=== PATIENT | female | born 1950 | race Caucasian/White ===

== ENCOUNTER 2020-10-09 13:29 | Inpatient (IN) | payer MEDICARE ==
[~2020-10-09] VITALS: Ht 160 cm; Wt 54.9 kg
[2020-10-09] MEDS ORDERED: FLUT1DIS IH (17:03)
[2020-10-09] MEDS ORDERED: THIA100T70 PO (17:03)
[2020-10-09] MEDS ORDERED: FOLI0.4T2 PO (17:03)
[2020-10-09] MEDS ORDERED: ALBU8.5H8 IH (17:03)
[2020-10-09] MEDS ORDERED: DIVA125C5 PO (17:03)
[2020-10-09] MEDS ORDERED: MULT-447 PO (17:03)
[2020-10-09] MEDS ORDERED: MAGN400T26 PO (17:03)
[2020-10-09] MEDS ORDERED: LEVO500T90 PO (17:03)
[2020-10-09] MEDS ORDERED: MONT10TA22 PO (17:03)
[2020-10-09] MEDS ORDERED: MAGNESIUM HYDROXIDE 30 ML UDC PO PRN (18:00)
[2020-10-09] MEDS ORDERED: ALBUTEROL FS 2.5 MG/3 ML VIAL.NEB INH PRN (18:30)
[2020-10-09 20:00] VITALS: BP 107/71
[2020-10-09] MEDS ORDERED: BLOOD SUGAR DIAGNOSTIC 1 EACH STRIP IN ONE (20:30)
[2020-10-09] MEDS: ACETAMINOPHEN 325 MG TABLET PO PRN (21:26)
[2020-10-09] MEDS: LORAZEPAM 0.5 MG TABLET PO PRN (21:26)
[2020-10-09] MEDS ORDERED: MONTELUKAST SODIUM (10MG) 10 MG TABLET PO SCH (22:00)
--- NOTE | 2020-10-09 22:09 | NUR ---
GPS RN NOTES: PATIENT REFUSED 2200 SINGULAR 10MG PO ORDERED. PER PATIENT SHE TAKES IT IN THE MORNINGS ONLY.
[2020-10-09 22:50] VITALS: BP 107/71
[2020-10-09] MEDS: TEMAZEPAM 7.5 MG CAPSULE PO PRN (22:56)
--- NOTE | 2020-10-10 01:04 | NUR ---
GPS RN NOTES: RECEIVED PATIENT A/O X2-3, PER REPORT, PATIENT PRESENTS TO [facility] AFTER SHE SAID SHE OVERDOSED ON 3 DIFFERENT PILLS BECAUSE HER ASKED FOR DIVORCE AND SHE IS OVERWHELMED. UPON FACE TO FACE EVALUATION, PATIENT PRESENTS A/O X2-3, FLAT AFFECT, DISHEVELED, NO S/S OF DISTRESS. NO COMPLAINS OF PAIN. RESPIRATION EVEN AND UNLABORED WITH EQUAL RISE AND FALL OF THE CHEST ON ROOM AIR. DENIES SUICIDAL IDEATIONS AT THIS TIME. PATIENT REFUSED TO SIGN ALL PAPER WORK, REFUSED MRSA, BS 95MG/DL. SKIN ASSESSMENT DONE AND PICTURES TAKEN AND PLACED IN PATIENT CHART. PATIENT RIGHTS BOOKLET GIVEN. PATIENT IS UNDER THE PSYCHIATRIC CARE OF [place] AND MEDICAL CARE OF [place]. PATIENT BELONGINGS WERE INVENTORIED AND CHECKED FOR CONTRABAND. CONTRABAND REMOVED AND STORED IN MANAGER GRANT'S SAFE. IMMUNIZATIONS QUESTIONER AND NECESSARY PAPER WORK COMPLETED. PATIENT ORIENTED TO ROOM, FLOOR AND STAFF WITH ALL QUESTIONS ANSWERED. PATIENT EDUCATED ON THE USE OF CALL CRUZ. PATIENT BED SIDE RAILS UP X2 FOR SAFETY. PATIENT BED IS LOCKED AND IN LOWEST POSITION. Q15 MINUTES ROUNDS INITIATED. PATIENT CURRENTLY SLEEPING. WILL CONTINUE TO MONITOR PATIENT FOR SAFETY, MOOD, AND BEHAVIOR.
[2020-10-10 07:20] LABS: ALBUMIN 2.9 g/dL (3.4-5.0); BILIRUBIN,TOTAL 0.4 mg/dL (0.2-1.0); CALCIUM, SERUM 8.9 mg/dL (8.5-10.1); CREATININE 0.6 mg/dL (0.6-1.3); POTASSIUM 3.4 mmol/L (3.5-5.1); TOTAL PROTEIN, SERUM 6.3 g/dL (6.4-8.2)
[2020-10-10 08:00] VITALS: BP 118/72
[2020-10-10] MEDS: LEVOFLOXACIN (500MG) 500 MG TABLET PO SCH (09:07)
[2020-10-10] MEDS: MAGNESIUM OXIDE 400 MG TABLET PO SCH (09:07)
[2020-10-10] MEDS: THIAMINE HCL 100 MG TABLET PO SCH (09:07)
[2020-10-10] MEDS: FOLIC ACID 1 MG TABLET PO SCH (09:07)
[2020-10-10] MEDS: MULTIVIT W/MINERALS 1 TAB TABLET PO SCH (09:07)
[2020-10-10] MEDS: FLUTICASONE/VILANTEROL 1 EACH BLST.W.DEV IH SCH (09:07)
[2020-10-10] MEDS ORDERED: POTASSIUM CHLORIDE 20 MEQ TAB.PRT.SR PO ONE (10:00)
[2020-10-10] MEDS: MONTELUKAST SODIUM (10MG) 10 MG TABLET PO SCH (13:50)
[2020-10-10] MEDS: OLANZAPINE 2.5 MG TABLET PO SCH ×2 (13:50→20:16)
[2020-10-10] MEDS: ACETAMINOPHEN 325 MG TABLET PO PRN ×2 (15:03→22:27)
--- NOTE | 2020-10-10 15:03 | NUR ---
GPS RN NOTES PATIENT COMPLAINING OF SHOULDER PAIN AND REQUESTING PRN MEDICATION. PRN TYLENOL ADMINISTERED.
[2020-10-10 16:00] VITALS: BP 97/79
--- NOTE | 2020-10-10 19:24 | NUR ---
RN NOTES, PATIENT IN HALLWAY WALKING, NO DISRUPTIVE BEHAVIOR NOTED, WILL CONT TO MONITOR.
[2020-10-10 20:00] VITALS: BP 105/59
[2020-10-10] MEDS: TEMAZEPAM 7.5 MG CAPSULE PO PRN (21:28)
--- NOTE | 2020-10-11 06:41 | NUR ---
RN NOTES, PT IN ROOM AT THIS TIME, NOTED WITH EPISODES OF CURSING AND YELLING STAFF, OTHERWISE NO SIGNIFICANT CHANGE IN CONDITION, WILL ENDORSE CONTINUITY OF CARE TO ONCOMING NURSE.
[2020-10-11 07:33] LABS: BASOPHILS % (AUTO) 0.8 % (0.0-2.0); EOSINOPHILS % (AUTO) 7.4 % (0.0-6.0); HEMATOCRIT 32 % (33-45); HEMOGLOBIN 11.1 g/dL (11.5-14.8); LYMPHOCYTES # (AUTO) 1.6 /CMM (0.8-4.8); LYMPHOCYTES % (AUTO) 35.9 % (20.0-44.0); MEAN CORPUSCULAR HGB CONC 34 g/dl (31.0-36.0); MEAN CORPUSCULAR VOLUME 92 fL (82-100); MONOCYTES # (AUTO) 0.6 /CMM (0.1-1.30); MONOCYTES % (AUTO) 13.2 % (2.0-12.0); NEUTROPHILS # (AUTO) 1.9 /CMM (1.8-8.9); NEUTROPHILS % (AUTO) 42.7 % (43.0-81.0); PLATELET COUNT (AUTO) 257 /CMM (150-450); RED BLOOD CELL COUNT(AUTO) 3.51 MIL/uL (4.0-5.2); WHITE BLOOD COUNT (AUTO) 4.4 K/uL (4.3-11.0)
[2020-10-11 07:56] LABS: BILIRUBIN,TOTAL 0.3 mg/dL (0.2-1.0); CALCIUM, SERUM 8.8 mg/dL (8.5-10.1); CREATININE 0.6 mg/dL (0.6-1.3); POTASSIUM 3.7 mmol/L (3.5-5.1); TOTAL PROTEIN, SERUM 6.3 g/dL (6.4-8.2)
[2020-10-11 08:00] VITALS: BP 107/68
[2020-10-11] MEDS: MONTELUKAST SODIUM (10MG) 10 MG TABLET PO SCH (08:55)
[2020-10-11] MEDS: LEVOFLOXACIN (500MG) 500 MG TABLET PO SCH (08:55)
[2020-10-11] MEDS: THIAMINE HCL 100 MG TABLET PO SCH (08:55)
[2020-10-11] MEDS: FOLIC ACID 1 MG TABLET PO SCH (08:55)
[2020-10-11] MEDS: OLANZAPINE 2.5 MG TABLET PO SCH ×2 (08:55→21:17)
[2020-10-11] MEDS: MULTIVIT W/MINERALS 1 TAB TABLET PO SCH (08:56)
[2020-10-11] MEDS: MAGNESIUM OXIDE 400 MG TABLET PO SCH (08:56)
[2020-10-11] MEDS: FLUTICASONE/VILANTEROL 1 EACH BLST.W.DEV IH SCH (09:00)
--- NOTE | 2020-10-11 10:04 | NUR ---
WOUND CARE CONSULT: PT PRESENTS WITH SKIN TEAR TO RT ARM NEAR ELBOW, PRESENT ON ADMISSION. PT STATES THAT SHE HAD A FALL PRIOR TO ADMISSION. RECOMMENDATIONS MADE FOR SKIN PROTECTION AND WOUND CARE. DISCUSSED WITH NURSING STAFF. IN AGREEMENT WITH PLAN OF CARE. Addendum: 10/11/20 at 1005 by ELIZABETH ROJAS WNDNU Amended: Links added.
--- NOTE | 2020-10-11 14:07 | NUR ---
Family Contact: SW called the pts daughter, Dianne ([phone]), and spoke to her at length about the pts prior history and the situation that caused her to be admitted to the psychiatric hospital. Per daughter she does not believe that the pt can return to the home at this time and SW expressed that the MD stated that SNF would be a reasonable discharge plan for the pt. ELIZABETH stated that she would send out referrals and keep her involved in the treatment.
[2020-10-11 16:00] VITALS: BP 147/74
[2020-10-11 20:27] VITALS: BP 119/73
[2020-10-11] MEDS: TEMAZEPAM 7.5 MG CAPSULE PO PRN (21:42)
[2020-10-11] MEDS: LORAZEPAM 0.5 MG TABLET PO PRN (23:11)
--- NOTE | 2020-10-11 23:17 | NUR ---
NURSES NOTES: PATIENT APPROACHED RESEARCH AND DEVELOPMENT DIRECTOR IN THE STATION, STILL AWAKE, COMPLAINING OF NOT BEING ABLE TO SLEEP. DR. CALHOUN MADE AWARE OF PATIENT'S REQUEST FOR SEROQUEL. EXPLAINED TO PATIENT THAT THIS MEDICATION IS NOT ORDERED FOR HER. OFFERED TO PATIENT HER ATIVAN MEDICATION THIS IS ONE OF HER PRN MEDS- THIS TIME AROUND PATIENT IS NOTED TO BE ANXIOUS AND WANTING TO SLEEP. ATIVAN 0.5 MG PO GIVEN. WILL MONITOR EFFICACY OF MEDICATION.
[2020-10-12 07:31] LABS: ALBUMIN 3.1 g/dL (3.4-5.0); BILIRUBIN,TOTAL 0.3 mg/dL (0.2-1.0); CALCIUM, SERUM 8.8 mg/dL (8.5-10.1); CREATININE 0.6 mg/dL (0.6-1.3); POTASSIUM 3.7 mmol/L (3.5-5.1); TOTAL PROTEIN, SERUM 6.5 g/dL (6.4-8.2)
[2020-10-12 08:00] VITALS: BP 98/59
[2020-10-12] MEDS: MONTELUKAST SODIUM (10MG) 10 MG TABLET PO SCH (08:19)
[2020-10-12] MEDS: FLUTICASONE/VILANTEROL 1 EACH BLST.W.DEV IH SCH (08:19)
[2020-10-12] MEDS: LEVOFLOXACIN (500MG) 500 MG TABLET PO SCH (08:19)
[2020-10-12] MEDS: MULTIVIT W/MINERALS 1 TAB TABLET PO SCH (08:19)
[2020-10-12] MEDS: FOLIC ACID 1 MG TABLET PO SCH (08:20)
[2020-10-12] MEDS: THIAMINE HCL 100 MG TABLET PO SCH (08:20)
[2020-10-12] MEDS: MAGNESIUM OXIDE 400 MG TABLET PO SCH (08:20)
[2020-10-12] MEDS: OLANZAPINE 2.5 MG TABLET PO SCH ×2 (08:20→12:29)
--- NOTE | 2020-10-12 13:20 | NUR ---
Family Contact: ELIZABETH called the pts daughter, Dianne ([phone]), to return her phone call. ELIZABETH stated that the MD will be calling her soon as she wants to discuss the pts history. ELIZABETH then went into explaining the recent medication adjustments that were made for the pt to assist with her condition as well as her difficulty sleeping. ELIZABETH informed the pts daughter that she would keep her updated.
[2020-10-12 16:00] VITALS: BP 133/63
[2020-10-12] MEDS: ACETAMINOPHEN 325 MG TABLET PO PRN (16:17)
[2020-10-12] MEDS ORDERED: OLANZAPINE 2.5 MG TABLET PO PRN (16:30)
--- NOTE | 2020-10-12 16:35 | NUR ---
Initial Discharge Plan: Pt currently resides at her home with her located at [address] [place] [address]; ([phone]). Per pt, she would like to return home. ELIZABETH spoke with pts daughter, Dianne ([phone]), who agreed that the pt will need a SNF. ELIZABETH will work with the pt, pts family, and pt MD regarding appropriate discharge planning. ELIZABETH will form a safe and proper discharge.
--- NOTE | 2020-10-12 17:06 | NUR ---
MD Contact: SW spoke with the pts outpatient physician, Dr. Reyes (office: [phone] and cell: [phone]), who stated that he wanted to know about the events leading to her hospitalization and wanted to understand the reasoning behind the decision to discharge pt to SNF. SW expressed that there are concerns around her stressor of her divorce and the suicidal statements that she has been making as well as endorsing a plan. Pts MD stated that he understands and states that he would be willing to be involved if needed.
--- NOTE | 2020-10-12 19:30 | NUR ---
GPS RN NOTE, RECEIVED PATIENT AWAKE AND IN BED, NO S/S OR COMPLAINTS OF PAIN AT THIS TIME. PATIENT IS DISPLAYING NO S/S OF APPARENT DISTRESS AT THIS TIME. PATIENT BREATHING IS UNLABORED WITH EQUAL RISE AND FALL OF THE CHEST. PATIENT IS ALERT AND ORIENTED X 2-3 ON ROOM AIR. PATIENT IS COMPLIANT WITH MEDICATIONS, ANXIOUS AT TIMES, TEARFUL, AND UNCOOPERATIVE. PATIENT DENIES SUICIDAL AND HOMICIDAL IDEATIONS AT THIS TIME. PATIENT ASSISTED WITH TURNING AND REPOSITIONING Q2HR AND PRN FOR COMFORT AND CIRCULATION. PATIENT HAS NO NEEDS AT THIS TIME. PATIENT EDUCATED ON THE USE OF THE CALL CRUZ. PATIENT BED SIDE RAILS UP X 2 FOR SAFETY. PATIENT BED IS LOCKED, LOW, WITH BED ALARM ON. WILL CONTINUE TO MONITOR THIS PATIENT Q15 MINUTES WITH THE HELP OF STAFF TO MAINTAIN SAFETY.
[2020-10-12] MEDS ORDERED: OLANZAPINE 5 MG TABLET PO SCH (21:00)
[2020-10-12] MEDS: TEMAZEPAM 7.5 MG CAPSULE PO PRN (21:17)
--- NOTE | 2020-10-12 21:17 | NUR ---
GPS RN NOTE, PATIENT HAS A COMPLAINT OF NOT BEING ABLE TO SLEEP AND IS REQUESTING RESTORIL AT THIS TIME. PATIENT VITAL SIGNS ARE STABLE. GAVE RESTORIL 7.5 MG PO HS PRN ORDERED. WILL REASSESS FOR INSOMNIA AND I WILL CONTINUE TO MONITOR THIS PATIENT.
[2020-10-13] MEDS: OLANZAPINE 2.5 MG TABLET PO SCH ×2 (07:59→13:07)
[2020-10-13 08:00] VITALS: BP 107/70
[2020-10-13] MEDS: FLUTICASONE/VILANTEROL 1 EACH BLST.W.DEV IH SCH (08:09)
[2020-10-13] MEDS: MONTELUKAST SODIUM (10MG) 10 MG TABLET PO SCH (08:09)
[2020-10-13] MEDS: THIAMINE HCL 100 MG TABLET PO SCH (08:10)
[2020-10-13] MEDS: MULTIVIT W/MINERALS 1 TAB TABLET PO SCH (08:10)
[2020-10-13] MEDS: MAGNESIUM OXIDE 400 MG TABLET PO SCH (08:10)
[2020-10-13] MEDS: LEVOFLOXACIN (500MG) 500 MG TABLET PO SCH (08:10)
[2020-10-13] MEDS: FOLIC ACID 1 MG TABLET PO SCH (08:10)
[2020-10-13] MEDS ORDERED: OLANZAPINE 2.5 MG TABLET PO PRN (10:00)
--- NOTE | 2020-10-13 10:24 | NUR ---
Individual Intervention: SW spoke with the pt in the hallway and informed her more about the SNF placement that the SW is in the process of attaining. Pt states that she understands that her family and the MD feel that this plan for discharge is the most appropriate for her at this time and states that she wants to be discharged as soon as possible. SW states that the MD will release her when she feels that the pt is stabilizing and pt expressed that she "cannot stand all of the screaming that happens at night." SW informed her that she will keep her updated on the pts referral process.
--- NOTE | 2020-10-13 10:25 | NUR ---
Family Contact: SW called the pts , Eleno ([phone]), who stated that by no means can the pt be discharged back to their home. He stated that he is in the process of getting a divorce and he is also hiring a truck trailer mechanic because the pt gave his financial information to her boyfriend. Pts stated that the pt needs to go to a facility because she cannot be managed after her recent overdose/suicide attempt. Pts stated that the pt has been confused lately and has a difficult time with recall. He stated that the pts father became the same way and the pt had stated, "If I ever get like him please shoot me. I do not want to live like that."
--- NOTE | 2020-10-13 10:39 | NUR ---
SNF Referral: ELIZABETH faxed a referral to [facility] with attn to Kym to the fax number: [phone].
--- NOTE | 2020-10-13 11:02 | NUR ---
Friend Contact: SW received a call from pts friend, Mauro ([phone]). Before SW provided any information to the pts friend, she received verbal consent from the pt to speak to him. He wanted an explanation as to why the pt was still on a hold, what the criteria was for 5250, stated he wanted the pts rights advocate phone number, and then stated that he wanted to speak to the psychiatrist. ELIZABETH explained the reasoning for the hold and informed him about the pts PC hearing and then handed the phone for the pt to speak to him.
--- NOTE | 2020-10-13 14:24 | NUR ---
SNF Contact: Cassidy ([phone]) from [facility] contacted the SW and stated that the pt was accepted to their facility.
[2020-10-13] MEDS: MAG HYDROX/AL HYDROX/SIMETH 30 ML UDC PO PRN (15:13)
[2020-10-13 16:00] VITALS: BP 145/82
--- NOTE | 2020-10-13 19:30 | NUR ---
GPS RN NOTE, RECEIVED PATIENT AWAKE AND IN BED, NO S/S OR COMPLAINTS OF PAIN AT THIS TIME. PATIENT IS DISPLAYING NO S/S OF APPARENT DISTRESS AT THIS TIME. PATIENT BREATHING IS UNLABORED WITH EQUAL RISE AND FALL OF THE CHEST. PATIENT IS ALERT AND ORIENTED X 2-3 ON ROOM AIR. PATIENT IS COMPLIANT WITH MEDICATIONS, ANXIOUS AT TIMES, TEARFUL, AND COOPERATIVE. PATIENT DENIES SUICIDAL AND HOMICIDAL IDEATIONS AT THIS TIME. PATIENT ASSISTED WITH TURNING AND REPOSITIONING Q2HR AND PRN FOR COMFORT AND CIRCULATION. PATIENT HAS NO NEEDS AT THIS TIME. PATIENT EDUCATED ON THE USE OF THE CALL CRUZ. PATIENT BED SIDE RAILS UP X 2 FOR SAFETY. PATIENT BED IS LOCKED, LOW, WITH BED ALARM ON. WILL CONTINUE TO MONITOR THIS PATIENT Q15 MINUTES WITH THE HELP OF STAFF TO MAINTAIN SAFETY.
[2020-10-13] MEDS: ACETAMINOPHEN 325 MG TABLET PO PRN (19:44)
--- NOTE | 2020-10-13 19:44 | NUR ---
GPS RN NOTE, PATIENT HAS A COMPLAINT OF CHRONIC RIGHT SHOULDER PAIN AT 3 OUT 10 ON THE PAIN SCALE AND IS REQUESTING TYLENOL AT THIS TIME. PATIENT VITAL SIGNS ARE STABLE. GAVE TYLENOL 650 MG PO Q6HR PRN ORDERED. WILL REASSESS PAIN AND IWILL CONTINUE TO MONITOR THIS PATIENT.
[2020-10-13] MEDS: OLANZAPINE 5 MG TABLET PO SCH (20:08)
[2020-10-13 20:43] VITALS: BP 116/74
[2020-10-13] MEDS: TEMAZEPAM 7.5 MG CAPSULE PO PRN (20:44)
[2020-10-13] MEDS ORDERED: OLANZAPINE 5 MG TABLET PO SCH (21:00)
[2020-10-13] MEDS: LORAZEPAM 0.5 MG TABLET PO PRN (22:37)
--- NOTE | 2020-10-13 22:39 | NUR ---
GPS RN NOTE, PATIENT HAS A COMPLAINT OF FEELING ANXIOUS AND IS REQUESTING ATIVAN AT THIS TIME. PATIENT VITAL SIGNS ARE STABLE. GAVE ATIVAN 0.5MG PO Q6HR PRN ORDERED. WILL REASSESS FOR ANXIETY AND I WILL CONTINUE TO MONITOR THIS PATIENT WITH THE HELP OF STAFF.
[2020-10-14 07:31] LABS: ALBUMIN 3.2 g/dL (3.4-5.0); BILIRUBIN,TOTAL 0.3 mg/dL (0.2-1.0); CALCIUM, SERUM 8.8 mg/dL (8.5-10.1); CREATININE 0.6 mg/dL (0.6-1.3); POTASSIUM 3.9 mmol/L (3.5-5.1); TOTAL PROTEIN, SERUM 6.6 g/dL (6.4-8.2)
[2020-10-14 08:00] VITALS: BP 102/74
[2020-10-14] MEDS: MONTELUKAST SODIUM (10MG) 10 MG TABLET PO SCH (08:07)
[2020-10-14] MEDS: FOLIC ACID 1 MG TABLET PO SCH (08:07)
[2020-10-14] MEDS: OLANZAPINE 2.5 MG TABLET PO SCH ×2 (08:07→12:26)
[2020-10-14] MEDS: LEVOFLOXACIN (500MG) 500 MG TABLET PO SCH (08:07)
[2020-10-14] MEDS: FLUTICASONE/VILANTEROL 1 EACH BLST.W.DEV IH SCH (08:07)
[2020-10-14] MEDS: THIAMINE HCL 100 MG TABLET PO SCH (08:07)
[2020-10-14] MEDS: MAGNESIUM OXIDE 400 MG TABLET PO SCH (08:07)
[2020-10-14] MEDS: MULTIVIT W/MINERALS 1 TAB TABLET PO SCH (08:09)
--- NOTE | 2020-10-14 09:11 | NUR ---
Substance Abuse Intervention: SW conducted a substance abuse intervention with the pt due to her prior overdose.
--- NOTE | 2020-10-14 09:30 | NUR ---
Individual Intervention: SW met with the pt and informed her that the pt is going to have a Probable Cause hearing today and explained what that entails. Pt appears to be anxious and states that she will like to call her and "try to convince him to take her home." SW informed her that she did get accepted to [facility]. SW also informed her that her friend, Mauro, stated that he wanted to be part of her hearing. Pt expressed that she will talk to her first and then determine what she wants to do.
--- NOTE | 2020-10-14 09:37 | NUR ---
Family Contact: ELIZABETH called the pts daughter, Dianne ([phone]), and explained the probable cause hearing to her and informed her of the pts current behaviors. ELIZABETH stated that she will inform her of the results of the hearing.
--- NOTE | 2020-10-14 11:31 | NUR ---
Probable Cause Hearing: Pts 5250 hold was upheld for grave disability.
--- NOTE | 2020-10-14 11:36 | NUR ---
Family Contact: SW called the pts daughter, Dianne ([phone]), and informed her that the pts hold was upheld and informed her that [facility] accepted the pt and provided her with that information.
[2020-10-14 16:00] VITALS: BP 101/76
--- NOTE | 2020-10-14 18:15 | NUR ---
GPS RN NOTES PATIENT RESTING IN ROOM, READING BOOK.
[2020-10-14] MEDS: OLANZAPINE 5 MG TABLET PO SCH (20:04)
[2020-10-14 20:25] VITALS: BP 102/59
[2020-10-14] MEDS: TEMAZEPAM 7.5 MG CAPSULE PO PRN (21:10)
[2020-10-14] MEDS: ACETAMINOPHEN 325 MG TABLET PO PRN (21:10)
[2020-10-14] MEDS: LORAZEPAM 0.5 MG TABLET PO PRN (22:40)
--- NOTE | 2020-10-15 06:09 | NUR ---
GPS RN CLOSING NOTES: PATIENT LAYING ON BED SLEEPING COMFORTABLY. SLEPT 6 HR THIS SHIFT. NO BEHAVIORAL ISSUES THIS SHIFT. MEDICATION COMPLIANT. NO S/S OF DISTRESS. RESPIRATION EVEN AND UNLABORED WITH EQUAL RISE AND FALL OF THE CHEST ON ROOM AIR. SAFETY PRECAUTION MAINTAINED, BED IN LOWEST POSITION AND LOCKED. Q15 MINUTES SAFETY ROUND CONTINUED. ALL PATIENT CARE NEEDS MET ANTICIPATED. WILL CONTINUE TO MONITOR PATIENT FOR MOOD, BEHAVIOR AND SAFETY AND ENDORSE TO AM SHIFT.
[2020-10-15 08:00] VITALS: BP 118/74
[2020-10-15] MEDS: THIAMINE HCL 100 MG TABLET PO SCH (09:06)
[2020-10-15] MEDS: FOLIC ACID 1 MG TABLET PO SCH (09:06)
[2020-10-15] MEDS: MONTELUKAST SODIUM (10MG) 10 MG TABLET PO SCH (09:06)
[2020-10-15] MEDS: MAGNESIUM OXIDE 400 MG TABLET PO SCH (09:06)
[2020-10-15] MEDS: OLANZAPINE 2.5 MG TABLET PO SCH ×2 (09:07→12:22)
[2020-10-15] MEDS: FLUTICASONE/VILANTEROL 1 EACH BLST.W.DEV IH SCH (09:08)
[2020-10-15] MEDS: MULTIVIT W/MINERALS 1 TAB TABLET PO SCH (09:11)
[2020-10-15] MEDS: MAG HYDROX/AL HYDROX/SIMETH 30 ML UDC PO PRN (13:08)
[2020-10-15 16:00] VITALS: BP 113/71
[2020-10-15] MEDS: ACETAMINOPHEN 325 MG TABLET PO PRN (20:17)
[2020-10-15] MEDS: OLANZAPINE 5 MG TABLET PO SCH (20:22)
[2020-10-15 20:53] VITALS: BP 102/64
[2020-10-15] MEDS: LORAZEPAM 0.5 MG TABLET PO PRN (21:41)
[2020-10-15] MEDS: TEMAZEPAM 7.5 MG CAPSULE PO PRN (22:31)
[2020-10-16 08:00] VITALS: BP 114/78
[2020-10-16] MEDS: OLANZAPINE 2.5 MG TABLET PO SCH ×2 (08:00→12:08)
[2020-10-16] MEDS: MAGNESIUM OXIDE 400 MG TABLET PO SCH (08:40)
[2020-10-16] MEDS: FLUTICASONE/VILANTEROL 1 EACH BLST.W.DEV IH SCH (08:40)
[2020-10-16] MEDS: MULTIVIT W/MINERALS 1 TAB TABLET PO SCH (08:41)
[2020-10-16] MEDS: MONTELUKAST SODIUM (10MG) 10 MG TABLET PO SCH (08:41)
[2020-10-16] MEDS: THIAMINE HCL 100 MG TABLET PO SCH (08:41)
[2020-10-16] MEDS: FOLIC ACID 1 MG TABLET PO SCH (08:41)
[2020-10-16 16:00] VITALS: BP 124/81
[2020-10-16] MEDS: ACETAMINOPHEN 325 MG TABLET PO PRN (17:26)
--- NOTE | 2020-10-16 17:28 | NUR ---
RN NOTES PT C/O ACHING LEFT SHOULDER PAIN AND REQUESTED FOR TYLENOL. PRN TYLENOL 650 MG PO GIVEN AT 1726. WILL CONTINUE OT MONITOR.
[2020-10-16] MEDS: MAG HYDROX/AL HYDROX/SIMETH 30 ML UDC PO PRN (19:40)
[2020-10-16 19:57] VITALS: BP 143/73
[2020-10-16] MEDS: OLANZAPINE 5 MG TABLET PO SCH (21:15)
[2020-10-16] MEDS: LORAZEPAM 0.5 MG TABLET PO PRN (22:18)
[2020-10-16] MEDS: TEMAZEPAM 7.5 MG CAPSULE PO PRN (23:37)
[2020-10-17 08:00] VITALS: BP 105/72
[2020-10-17] MEDS: OLANZAPINE 2.5 MG TABLET PO SCH ×2 (08:00→14:36)
[2020-10-17] MEDS: MONTELUKAST SODIUM (10MG) 10 MG TABLET PO SCH (08:35)
[2020-10-17] MEDS: MULTIVIT W/MINERALS 1 TAB TABLET PO SCH (08:35)
[2020-10-17] MEDS: THIAMINE HCL 100 MG TABLET PO SCH (08:35)
[2020-10-17] MEDS: FOLIC ACID 1 MG TABLET PO SCH (08:35)
[2020-10-17] MEDS: MAGNESIUM OXIDE 400 MG TABLET PO SCH (08:35)
[2020-10-17] MEDS: FLUTICASONE/VILANTEROL 1 EACH BLST.W.DEV IH SCH (09:38)
--- NOTE | 2020-10-17 14:00 | NUR ---
Family Contact: SW called the pts daughter, Dianne ([phone]), and discussed the pts discharge for tomorrow to [facility]. She stated that she has not had a chance to see the facility yet but as it is the only one accepting the pt at this time and as her discharge is for tomorrow, she will accept the placement.
--- NOTE | 2020-10-17 15:33 | NUR ---
APS Report: ELIZABETH submitted an APS report (Intake ID [id number]) which was successfully submitted on 10/17/2020 at 3:32 PM.
[2020-10-17 16:00] VITALS: BP 125/81
--- NOTE | 2020-10-17 18:18 | NUR ---
RN NOTE PATIENT WITH NO S/S OF HARM TO SELF OR OTHERS, PATIENT REFUSED TO TAKE AM ZYPREXA. PATIENT SPENT MUCH TIME IN THE MAIN ROOM WITH OTHER PATIENTS SOCIALIZING AND PARTICIPATING IN DAILY ACTIVITIES. PATIENT ATE WELL THROUGHOUT THE DAY. NO MAJOR ISSUES NOTED. END RN NOTE. BN
[2020-10-17 20:00] VITALS: BP 92/58
[2020-10-17] MEDS ORDERED: OLANZAPINE 5 MG TABLET PO SCH (21:00)
[2020-10-17] MEDS: TEMAZEPAM 7.5 MG CAPSULE PO PRN (21:11)
[2020-10-17] MEDS: LORAZEPAM 0.5 MG TABLET PO PRN (21:11)
[2020-10-17] MEDS ORDERED: DONEPEZIL 5 MG TABLET PO SCH (22:00)
[2020-10-18 08:00] VITALS: BP 107/67
[2020-10-18] MEDS: MULTIVIT W/MINERALS 1 TAB TABLET PO SCH (09:19)
[2020-10-18] MEDS: MAGNESIUM OXIDE 400 MG TABLET PO SCH (09:19)
[2020-10-18] MEDS: MONTELUKAST SODIUM (10MG) 10 MG TABLET PO SCH (09:19)
[2020-10-18] MEDS: THIAMINE HCL 100 MG TABLET PO SCH (09:19)
[2020-10-18] MEDS: FOLIC ACID 1 MG TABLET PO SCH (09:19)
[2020-10-18] MEDS: FLUTICASONE/VILANTEROL 1 EACH BLST.W.DEV IH SCH (09:20)
--- NOTE | 2020-10-18 11:25 | NUR ---
Discharge Note: Pt will be discharged to [facility] (SNF) located at [address] [place] [address]; ([phone]). Pts daughter, Dianne ([phone]), was made aware of the discharge. Pt was transported via [facility] at 12PM. Upon discharge, the pt appears to be in an anxious mood and presented with a congruent affect. Pt appears to be alert and oriented x4 (time, place, self and situation). Pt appears to be well groomed and appropriately dressed. Pt denies having any suicidal or homicidal ideation and stated that she does not have any auditory or visual hallucinations. Pt will be under the care of her psychiatrist, Dr. Duenas, located at [address], [place] [address]; and data warehouse specialist, Dr. Lopez, located at [address], [place] [address], . Pt signed the Choice of Vendor form and the multidisciplinary exit care form was done, printed, signed, and given to the patient.
--- NOTE | 2020-10-18 12:00 | NUR ---
PT REFUSED TO TAKE PICTURE OF WOUND-STATED ITS MUCH BETTER AND SHOWED 2 BANDAIRS ON SITE
--- NOTE | 2020-10-18 12:32 | NUR ---
PT SIGNED [id number] GIVEN TO NURSE IN [facility]-
[2020-10-18] MEDS ORDERED: OLANZAPINE 2.5 MG TABLET PO SCH (13:00)
--- NOTE | 2020-10-18 13:30 | NUR ---
49 yr old female discharged [facility] in stable condition. Compliant with medicatios/cooperative with tx plan. Pt denies SI/HI and is instructed to go the nearest ER if developing SI/HI. Behaviour improved, psychiatric tx plan met, medical tx plan deferred to continual monitoring. Pt educated regarding after care plan and copy provided. Pt belongings returned. medications reconciles with psychiatrist and internal med. doctors Pt left the unit at 1330 via trasport Addendum: 10/18/20 at 1417 by CITLALI MCMILLAN RN Amended: Links added.
== END 2020-10-18 15:10 | DRG 885 ==
LOC: GPS 16:40
PROVIDERS: ADMIT Psychiatry & Neurology Psychosomatic Medicine; ATTEND Student in an Organized Health Care Education/Training Program
DX: F31.9 Bipolar disorder, unspecified (principal); E43 Unspecified severe protein-calorie malnutrition; J45.909 Unspecified asthma, uncomplicated; F29 Unspecified psychosis not due to a substance or known physiological condition; F19.90 Other psychoactive substance use, unspecified, uncomplicated; F03.90 Unspecified dementia, unspecified severity, without behavioral disturbance, psychotic disturbance, mood disturbance, and anxiety; Z96.612 Presence of left artificial shoulder joint; G47.00 Insomnia, unspecified; M19.90 Unspecified osteoarthritis, unspecified site; F41.9 Anxiety disorder, unspecified; M81.0 Age-related osteoporosis without current pathological fracture; T43.59 Poisoning by, adverse effect of and underdosing of other antipsychotics and neuroleptics
CPT/HCPCS: 36415; 70551-TC; 80053-TC; 80061-TC; 82962-TC; 85025-TC; A6403